=== PATIENT | male | born 1995 | race Caucasian/White ===

== ENCOUNTER → 2017-04-08 12:21 | Emergency (ER) | payer SELFPAY ==
[2017-04-08 14:02] VITALS: BP 160/75
== END | disposition left against medical advice (07) ==
LOC: ED 12:21
DX: R51 Headache (principal); Z53.21 Procedure and treatment not carried out due to patient leaving prior to being seen by health care provider

== ENCOUNTER 2018-01-24 03:52 | Emergency (ER) | payer OTHER ==
[2018-01-24] MEDS ORDERED: Ibuprofen TAB* 600 MG PO ONE (04:00)
[2018-01-24 04:39] VITALS: BP 0/0
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
--- NOTE | 2018-01-24 11:22 | RAD ---
Indication: Right hand pain and injury. 2 views of the right hand demonstrates no fracture. No other bone or joint abnormalities identified. IMPRESSION: Unremarkable right hand.
== END 2018-01-24 04:36 | disposition home or self-care (01) ==
LOC: ED 03:52
DX: S60.221A Contusion of right hand, initial encounter (principal); Y04.0XXA Assault by unarmed brawl or fight, initial encounter; Y92.511 Restaurant or cafe as the place of occurrence of the external cause
CPT/HCPCS: 99282; A9270-GY

== ENCOUNTER 2019-07-17 14:54 | Emergency (ER) | payer OTHER ==
[2019-07-17] MEDS ORDERED: Tetan/Diph/Pertus SYR(Tdap)* 0.5 ML SYR(BOOSTRIX) use SYR contains LATEX IM ONE (15:19)
[2019-07-17] MEDS ORDERED: Ibuprofen TAB* 600 MG PO ONE (15:19)
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
[2019-07-17 17:01] VITALS: BP 129/65
== END 2019-07-17 16:53 | disposition home or self-care (01) ==
LOC: ED 14:54
DX: S62.511A Displaced fracture of proximal phalanx of right thumb, initial encounter for closed fracture (principal); S61.451A Open bite of right hand, initial encounter; Z23 Encounter for immunization; Y04.1XXA Assault by human bite, initial encounter; Y04.2XXA Assault by strike against or bumped into by another person, initial encounter; Y92.9 Unspecified place or not applicable; J45.909 Unspecified asthma, uncomplicated; F17.210 Nicotine dependence, cigarettes, uncomplicated; Z88.1 Allergy status to other antibiotic agents
CPT/HCPCS: 90471; 90715; 99282; A9270-GY